=== PATIENT | female | born 1990 | race Caucasian/White ===

== ENCOUNTER 2020-07-19 15:25 | Outpatient (CLI) | payer OTHER, SELFPAY ==
[2020-07-19 19:31] LABS: Hematocrit 43.9 % (37.0-47.0); Hemoglobin 14.6 g/dL (12.0-15.0); Mean Corpuscular HGB Conc 33.3 g/dl (32-36); Mean Corpuscular Volume 90.1 fl (80-100); Mean Platelet Volume 10.5 fl (7.4-10.4); Platelet Count Result 358 k/mm3 (150-375); Red Blood Count 4.87 M/mm3 (4.2-5.4); Red Cell Distribution Width 12.8 % (11.5-14.5); White Blood Count 11.1 K/mm3 (4.5-10.0)
[2020-07-19 19:40] LABS: Glucose 93 mg/dL (65-105)
[2020-07-19 19:41] LABS: Hemoglobin A1C 5.1 % (<5.7)
== END 2020-07-19 15:26 | disposition home or self-care (01) ==
PROVIDERS: Visit Provider Obstetrics & Gynecology
DX: N92.1 Excessive and frequent menstruation with irregular cycle (principal); E28.2 Polycystic ovarian syndrome
CPT/HCPCS: 36415; 82947; 83036; 84443; 85027

== ENCOUNTER 2020-11-28 01:13 | Day surgery (SDC) | payer OTHER, SELFPAY ==
[2020-11-21 17:07] VITALS: BMI 43.1
--- NOTE | 2020-11-25 14:43 | PM.IMHP ---
H&P: HPI History of Present Illness Date/Time: 11/25/20 14:43 30 y/o with heavy irregular bleeding since 09/10. Bleeding started 09/10 and was heavy. She started Junel 10/19, and bleeding slowed for 3 days then became heavy again. She increased to 30 mcg OCP 11/04, which has slowed bleeding a bit. She is still soaking about 10 pads per day and passing small clots. Mild cramping, ibuprofen helps. No CP, SOB, dizziness Chief Complaint: Menometrorrhagia Review of Systems Review of Systems: All systems reviewed & are unremarkable except as noted in HPI and below PMFSH Past Medical History Medical History Asthma Elective surgery exploratory surgery x3 Endometriosis Injury of lumbar spine Menometrorrhagia PCOS (polycystic ovarian syndrome) Polycystic ovary syndrome Surgical History Surgical History History of appendectomy History of laparoscopy x3 History of oral surgery History of ovarian cystectomy x3 Previous section x1 [place] teeth extracted Family History Family History Mother Thyroid disorder Grandparent Cerebrovascular accident grandfather Thyroid disorder grandmother Heart disease [place] disease grandmother Other Breast cancer Social History Social History Smoking packs per day: 0.5 Smoking cigarettes per day: 10.0 Years smoked: 15 Smoking pack-years: 7.50 Smoking status: Current every day smoker Tobacco type: cigarettes Alcohol intake: current Alcohol use details: Once or twice per month Substance use: never Spiritual care concerns: No Meds Home Medications and Allergies Home Medications Medication Instructions Recorded Confirmed Type bupropion HCl 300 mg 24 hr tablet, 300 mg PO QAM 07/19/20 11/21/20 History extended release cholecalciferol (vitamin D3) 50 50 mcg PO DAILY 07/19/20 11/21/20 History mcg (2,000 unit) capsule multivitamin 1 tablet PO DAILY 07/19/20 11/21/20 History norethindrone acetate 1.5 1 tablet PO DAILY #84 tablet 11/04/20 11/21/20 Rx mg-ethinyl estradiol 30 mcg tablet oxycodone-acetaminophen 1 - 2 tablet PO Q8H PRN 11/21/20 11/21/20 History Allergies Allergy/AdvReac Type Severity Reaction Status Date / Time camphor Allergy Severe Anaphylaxis Verified 11/21/20 17:04 clarithromycin [From Biaxin] Allergy Severe Abdominal Verified 11/21/20 17:04 Pain medroxyprogesterone Allergy Severe Anaphylaxis Verified 11/21/20 17:04 [From Provera] morphine Allergy Severe Itching Verified 11/21/20 17:04 cefaclor [From Ceclor] Allergy Mild Abdominal Verified 11/21/20 17:04 Pain Exam Const: General: comfortable, no acute distress, well developed, alert and awake Resp: Auscultation: clear to auscultation bilaterally Cardio: Rate: regular rate Rhythm: regular rhythm GI: Inspection: non-distended GI Palp: Yes Soft to palpation and No Tenderness to palpation present (GI) : Bimanual exam- vagina & uterus: normal bimanual exam, uterine size normal, uterine shape normal, non-tender and soft Bimanual Exam- Adnexa, other: normal adnexae, no masses and No adnexal tenderness Extrem: General: no pedal edema and no calf tenderness Psych: Mental Status: mental status grossly normal Assessment and Plan Assessment and plan (1) Menometrorrhagia: Code(s): N92.1 - Excessive and frequent menstruation with irregular cycle Status: Acute Assessment and Plan: Heavy prolonged bleeding despite two doses of OCPs, ultrasound showed normal uterus with 18.2 mm endometrial stripe and normal sized ovaries with numerous peripheral ovarian follicles consistent with PCOS. She signed consent after risks, benefits, complications, and alternatives discussed for D&C,
--- NOTE | 2020-11-28 08:31 | WPDANESEPPF ---
Anes - Initial Pre Proc Eval Procedure: Operation Date: 11/28/20 14:00 Proposed Procedures p Hysteroscopy Dilation and Curettage - Marlen Melton MD Date/Time: 11/28/20 08:31 Surgeon: Marlen Melton MD Pre Op Diagnosis: Menometrorrhagia Patient Data Age: 30 Gender: F Height: 1.7 m Weight: 125 kg Allergies Allergy/AdvReac Type Severity Reaction Status Date / Time camphor Allergy Severe Anaphylaxis Verified 11/21/20 17:04 medroxyprogesterone Allergy Severe Anaphylaxis Verified 11/21/20 17:04 [From Provera] clarithromycin [From Biaxin] AdvReac Severe Abdominal Verified 11/28/20 12:36 Pain morphine AdvReac Severe Itching Verified 11/28/20 12:36 cefaclor [From Ceclor] AdvReac Intermediate Abdominal Verified 11/28/20 12:36 Pain Home Medications Medication Instructions Recorded Confirmed Type bupropion HCl 300 mg 24 hr tablet, 300 mg PO QAM 07/19/20 11/21/20 History extended release cholecalciferol (vitamin D3) 50 50 mcg PO DAILY 07/19/20 11/21/20 History mcg (2,000 unit) capsule multivitamin 1 tablet PO DAILY 07/19/20 11/21/20 History norethindrone acetate 1.5 1 tablet PO DAILY #84 tablet 11/04/20 11/21/20 Rx mg-ethinyl estradiol 30 mcg tablet oxycodone-acetaminophen 1 - 2 tablet PO Q8H PRN 11/21/20 11/21/20 History Patient hx anesthesia problems: none Family hx anesthesia problems: none PMFSH Past Medical History Medical History (Updated 11/28/20 @ 08:31 by Marquez Sifuentes DO) Asthma Elective surgery exploratory surgery x3 Endometriosis 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 spine Menometrorrhagia PCOS (polycystic ovarian syndrome) Polycystic ovary syndrome Surgical History Surgical History History of appendectomy History of laparoscopy x3 History of oral surgery History of ovarian cystectomy x3 Previous section x1 [place] teeth extracted Family History Family History Mother Thyroid disorder Grandparent Cerebrovascular accident grandfather Thyroid disorder grandmother Heart disease [place] disease grandmother Other Breast cancer Social History Social History Smoking packs per day: 0.5 Smoking cigarettes per day: 10.0 Years smoked: 15 Smoking pack-years: 7.50 Smoking status: Current every day smoker Tobacco type: cigarettes Alcohol intake: current Alcohol use details: Once or twice per month Substance use: never Living arrangements: with family Spiritual care concerns: No Anes - Eval Final PreProcedure Day of Procedure 11/28/20 08:31 Patient weight: morbidly obese Heart: regular rate and rhythm Lungs: clear to auscultation and normal air movement Airway: Mallampati scale class II Neurological: alert and oriented Last oral intake: >/= 8 hours ASA classification: III Emergent: no Anesthetic plan: proceed Anesthesia type and monitoring: general GIVS and standard monitoring Informed Consent: The patient's anesthetic plan and its attendant risks and benefits were discussed with the patient/family/POA. Questions were solicited and answers provided to the satisfaction of the patient/family/POA.
--- NOTE | 2020-11-28 12:02 | WPDHPUPDATE1 ---
History and Physical Update Update Date/Time: 11/28/20 12:02 History and Physical has been reviewed, including an updated exam of the patient. There are NO changes in the patient's condition. Risks, benefits, and alternatives have been discussed and questions answered. Patient agrees to proceed with procedure.
[2020-11-28 12:23] VITALS: BP 135/67; PULSE 83; RESP 20; TEMP 36.5; O2SAT 98
[2020-11-28] MEDS: ACETAMINOPHEN 500 MG TABLET 1000 MG PO (12:39)
[2020-11-28] MEDS: LACTATED RINGERS 1,000 ML 30 ML IV CONT (12:45)
--- NOTE | 2020-11-28 13:19 | W.PM.PROC2 ---
Procedure Note - Detailed Date of Procedure 11/28/20 Pre-op Diagnosis Menometrorrhagia Post-op Diagnosis same Procedure Performed D&C, hysteroscopy Surgeon Marlen Melton MD Anesthesia MAC Indications Heavy prolonged irregular bleeding Findings normal endometrial cavity with fluffy appearing endometrium but no polyps or fibroids visible Description of Procedure She was taken to the operating room where she was sedated and placed in the dorsal lithotomy position. A speculum was placed in the vagina. The anterior lip of the cervix was grasped with a single-tooth tenaculum. The uterus sounded to 8.5 cm. Cervix was dilated to allow passage of the hysteroscope, which revealed normal endometrial cavity. There was noted to be fluffy appearing thickened endometrium but no obvious polyps or fibroids. A sharp curettage was performed and the curettings sent for pathologic evaluation. The tenaculum was removed from the cervix. Both tenaculum sites were bleeding. Pressure was held with ring forceps and Allis clamp until excellent hemostasis was assured. All instruments were removed from the vagina. She tolerated the procedure well. Sponge, lap, and instrument counts were correct x2. She was taken to the recovery room in stable condition. Estimated Blood Loss 10 Drains No Packing No Pathology yes Complications No immediate complications Condition stable Disposition PACU
[2020-11-28 14:13] VITALS: BP 142/67; PULSE 65; RESP 14; O2SAT 97
[2020-11-28 14:40] VITALS: BP 137/68; PULSE 59; RESP 15
[2020-11-28] MEDS: oxyCODONE HCL (*CRX) 5 MG TAB IR PO (14:57)
[2020-11-28 15:04] VITALS: BP 132/77; PULSE 65; RESP 16
== END 2020-11-28 15:14 | disposition home or self-care (01) ==
PROVIDERS: Visit Provider Obstetrics & Gynecology
PROC: 0U5B8ZZ Destruction of Endometrium, Via Natural or Artificial Opening Endoscopic (ICD-10-PCS; CPT 58563; principal; 2020-11-28 14:00)
DX: N92.1 Excessive and frequent menstruation with irregular cycle (principal); J45.909 Unspecified asthma, uncomplicated; N80.9 Endometriosis, unspecified; E28.2 Polycystic ovarian syndrome; E66.01 Morbid (severe) obesity due to excess calories; Z68.41 Body mass index [BMI] 40.0-44.9, adult; F17.210 Nicotine dependence, cigarettes, uncomplicated
CPT/HCPCS: 58558; 88305; A9270; J2250; J2405; J2704; J3010; J7030; J7120